=== PATIENT | female | born 1995 | race African-American/Black ===

== ENCOUNTER 2019-01-09 19:44 | Emergency (ER) | payer OTHER ==
--- NOTE | 2019-01-09 21:18 | ER Document Report ---
ED General - General Chief Complaint: Abdominal Pain Stated Complaint: ABDOMINAL PAIN Time Seen by Provider: 01/09/19 21:06 Primary Care Provider: [facility] [Provider Group] - Follow up in 3-5 days Notes: Patient is a 23-year-old female G 2P1 approximately 8-10 weeks gravid that presents to the emergency department for chief complaint of pelvic pain and cramping and low back pain. Patient reports she is been having pelvic cramping and lower back pain as well as nausea and a few episodes of vomiting for several days now. It has been going on for almost a week. She currently rates the pain as a 3 out of 10 she is not taking anything for the pain at home. She states the pain seemed to be worse today so she decided come to the emergency department to have this evaluated. She also reports having some vaginal bleeding over the past 2 days, described as red 2 days ago, and darker more like spotting yesterday. Denies having any further bleeding today. She is not sure of her blood type. Past Medical History: Migraine headaches Past Surgical History: Denies surgical history Social History: Denies tobacco, alcohol or drug use. Family History: Reviewed and noncontributory for presenting illness Allergies: Reviewed, see documented allergy list. REVIEW OF SYSTEMS: Other than noted above, the 12 point review of systems was reviewed with the patient and were negative, all pertinent findings are included in the HPI. PHYSICAL EXAMINATION: Vital signs reviewed, nursing noted reviewed. GENERAL: Well-appearing, well-nourished and in no acute distress. HEAD: Atraumatic, normocephalic. EYES: Eyes appear normal, extraocular movements intact, sclera anicteric, conjunctiva are normal. ENT: nares patent, oropharynx clear without exudates. Moist mucous membranes. NECK: Normal range of motion, supple without lymphadenopathy LUNGS: Breath sounds clear to auscultation bilaterally and equal. No wheezes rales or rhonchi. HEART: Regular rate and rhythm without murmurs ABDOMEN: Soft, mild lower abdominal tenderness to palpation bilaterally, normoactive bowel sounds. No rebound, guarding, or rigidity. No masses appreciated. EXTREMITIES: Nontender, good range of motion, no pitting or edema. NEUROLOGICAL: No focal neurological deficits. Moves all extremities spontaneously Motor and sensory grossly intact on exam. PSYCH: Normal mood, normal affect. SKIN: Warm, Dry, normal turgor, no rashes or lesions noted on exposed skin TRAVEL OUTSIDE OF THE [place] IN LAST 30 DAYS: No - Related Data Allergies/Adverse Reactions: No Known Allergies Allergy (Unverified 01/09/19 19:50) Past Medical History - Social History Smoking Status: Never Smoker Chew tobacco use (# tins/day): No Frequency of alcohol use: None Drug Abuse: None Family History: Reviewed & Not Pertinent Patient has suicidal ideation: No Patient has homicidal ideation: No Renal/ Medical History: Denies: Hx Peritoneal Dialysis Physical Exam - Vital signs Vitals: Temp Pulse Resp BP Pulse Ox 99 F 85 18 165/75 H 98 01/09/19 19:53 01/09/19 19:53 01/09/19 19:53 01/09/19 19:53 01/09/19 19:53 Course - Re-evaluation Re-evalutation: Patient seen and examined vital signs reviewed. Laboratory data and imaging were ordered as appropriate for the patient's presenting symptoms and complaint, with consideration of any critical or life threatening conditions that may be associated with their obtained history and exam as noted above. Patient was treated with Tylenol and Reglan as well as IV fluids Results were reviewed when available and demonstrated single IUP on ultrasound, blood work demonstrated very mild anemia, appropriate quantitative hCG, urinalysis was unremarkable not concerning for UTI. The patient was re-evaluated and was stable Evaluation was most consistent with vaginal bleeding in early , abdominal cramping, and nausea, will discharge to have her follow-up with women's health. Results were discussed with the patient at this point, after careful consideration I feel that that patient can be discharged from the emergency department, the patient was educated treatments and reasons to return to the emergency department based on their presumed diagnosis as noted above, they were advised to followup with a primary care physician in 2-3 days. Patient was agreeable to plan of care. *Note is created using voice recognition software and may contain spelling, syntax or grammatical errors. Laboratory 01/09/19 01/09/19 01/09/19 20:13 21:50 21:50 WBC 8.3 RBC 4.14 Hgb 11.0 L Hct 32.3 L MCV 78 L MCH 26.6 L MCHC 34.1 RDW 15.6 H Plt Count 252 Seg Neutrophils % 66.4 Lymphocytes % 26.1 Monocytes % 5.7 Eosinophils % 1.5 Basophils % 0.3 Absolute Neutrophils 5.5 Absolute Lymphocytes 2.2 Absolute Monocytes 0.5 Absolute Eosinophils 0.1 Absolute Basophils 0.0 Sodium 137.8 Potassium 3.8 Chloride 106 Carbon Dioxide 20 L Anion Gap 12 BUN 10 Creatinine 0.82 Est GFR ( Amer) > 60 Est GFR (Non-Af Amer) > 60 Glucose 82 Calcium 9.4 Total Bilirubin 0.6 Direct Bilirubin 0.3 Neonat Total Bilirubin Not Reportable Neonat Direct Bilirubin Not Reportable Neonat Indirect Bili Not Reportable AST 17 ALT 7 L Alkaline Phosphatase 82 Total Protein 7.1 Albumin 4.1 Lipase 32.4 Beta HCG, Quant 18458.00 H Total Beta HCG POSITIVE Urine Color YELLOW Urine Appearance CLEAR Urine pH 5.0 Ur Specific [place] 1.014 Urine Protein NEGATIVE Urine Glucose (UA) NEGATIVE Urine Ketones 20 H Urine Blood NEGATIVE Urine Nitrite NEGATIVE Urine Bilirubin NEGATIVE Urine Urobilinogen NEGATIVE Ur Leukocyte Esterase NEGATIVE Urine WBC (Auto) 1 Squamous Epi Cells Auto 2 Urine Mucus (Auto) RARE Urine Ascorbic Acid NEGATIVE Blood Type Rhogam Indicated 01/09/19 21:50 WBC RBC Hgb Hct MCV MCH MCHC RDW Plt Count Seg Neutrophils % Lymphocytes % Monocytes % Eosinophils % Basophils % Absolute Neutrophils Absolute Lymphocytes Absolute Monocytes Absolute Eosinophils Absolute Basophils Sodium Potassium Chloride Carbon Dioxide Anion Gap BUN Creatinine Est GFR ( Amer) Est GFR (Non-Af Amer) Glucose Calcium Total Bilirubin Direct Bilirubin Neonat Total Bilirubin Neonat Direct Bilirubin Neonat Indirect Bili AST ALT Alkaline Phosphatase Total Protein Albumin Lipase Beta HCG, Quant Total Beta HCG Urine Color Urine Appearance Urine pH Ur Specific [place] Urine Protein Urine Glucose (UA) Urine Ketones Urine Blood Urine Nitrite Urine Bilirubin Urine Urobilinogen Ur Leukocyte Esterase Urine WBC (Auto) Squamous Epi Cells Auto Urine Mucus (Auto) Urine Ascorbic Acid Blood Type O POSITIVE Rhogam Indicated RHOGAM NOT INDICATED Obstetrics Ultrasound 01/09/19 21:18 IMPRESSION: Single live intrauterine . Small subchorionic hemorrhage. - Vital Signs Vital signs: Temp Pulse Resp BP Pulse Ox 98.6 F 75 18 114/57 L 100 01/10/19 00:41 01/10/19 00:41 01/09/19 19:53 01/10/19 00:41 01/10/19 00:41 - Laboratory Result Diagrams: 01/09/19 21:50 01/09/19 21:50 Laboratory results interpreted by me: 01/09/19 01/09/19 01/09/19 20:13 21:50 21:50 Hgb 11.0 L Hct 32.3 L MCV 78 L MCH 26.6 L RDW 15.6 H Carbon Dioxide 20 L ALT 7 L Beta HCG, Quant 97718.00 H Urine Ketones 20 H Discharge - Discharge Clinical Impression: Pelvic pain, Vaginal bleeding during Subchorionic hemorrhage Qualifiers: Fetus number: single or unspecified fetus Trimester: first trimester Qualified Code(s): O41.8X10 - Other specified disorders of amniotic fluid and membranes, first trimester, not applicable or unspecified Condition: Stable Disposition: HOME, SELF-CARE Instructions: Bleeding During Early ([facility]) Additional Instructions: Please follow-up with women's health, you may take the prescribed antinausea m edicine every 8 hours if needed. If your symptoms worsen or you have further or concerning vaginal bleeding, do not hesitate to return to the emergency department. Prescriptions: Metoclopramide HCl [Reglan 10 mg Tablet] 1 tab PO Q8H PRN #10 tablet PRN Reason: nausea/vomiting Referrals: [facility] [Provider Group] - Follow up in 3-5 days
[2019-01-09] MEDS ORDERED: NORMAL SALINE 1000 ML 1,000 ML IV ONE (21:19)
[2019-01-09] MEDS ORDERED: ACETAMINOPHEN 325 MG TABLET PO ONE (21:19)
[2019-01-09] MEDS ORDERED: METOCLOPRAMIDE HCL INJ/PF 10 MG/2 ML SDV IV ONE (21:56)
[2019-01-09 22:09] LABS: ABSOLUTE EOSINOPHILS # (AUTO) 0.1 10^3/uL (0.0-0.6); ABSOLUTE LYMPHOCYTES (AUTO) 2.2 10^3/uL (0.5-4.7); ABSOLUTE MONOCYTES (AUTO) 0.5 10^3/uL (0.1-1.4); ABSOLUTE NEUT (AUTO) 5.5 10^3/uL (1.7-8.2); BASOPHILS % (AUTO) 0.3 % (0-2); EOSINOPHILS % (AUTO) 1.5 % (0-6); HEMATOCRIT 32.3 % (36.0-47.0); LYMPHOCYTES % (AUTO) 26.1 % (13-45); MEAN CORPUSCULAR HEMOGLOBIN 26.6 pg (27.0-33.4); MEAN CORPUSCULAR HGB CONC 34.1 g/dL (32.0-36.0); MEAN CORPUSCULAR VOLUME 78 fl (80-97); MONOCYTES % (AUTO) 5.7 % (3-13); PLATELET COUNT 252 10^3/uL (150-450); RED BLOOD COUNT 4.14 10^6/uL (3.72-5.28); RED CELL DISTRIBUTION WIDTH 15.6 % (11.5-14.0); SEGMENTED NEUTROPHILS % (AUTO) 66.4 % (42-78); TOTAL CELLS COUNTED % (AUTO) 100 %; WHITE BLOOD COUNT 8.3 10^3/uL (4.0-10.5)
[2019-01-09 22:12] LABS: APPEARANCE,URINE CLEAR; BILIRUBIN,URINE NEGATIVE (NEGATIVE); COLOR,URINE YELLOW; GLUCOSE, URINE NEGATIVE (NEGATIVE); KETONES,URINE 20 mg/dL (NEGATIVE); LEUKOCYTE ESTERASE,URINE NEGATIVE (NEGATIVE); NITRITE,URINE NEGATIVE (NEGATIVE); PROTEIN,URINE NEGATIVE (NEGATIVE); URINE SPECIFIC GRAVITY 1.014; UROBILINOGEN,URINE NEGATIVE mg/dL (<2.0)
[2019-01-09 23:00] LABS: ALANINE AMINOTRANSFERASE 7 U/L (9-52); ALBUMIN 4.1 g/dL (3.5-5.0); ALKALINE PHOSPHATASE 82 U/L (38-126); ANION GAP 12 (5-19); ASPARTATE AMINO TRANSFERASE 17 U/L (14-36); BILIRUBIN,DIRECT 0.3 mg/dL (0.0-0.4); BILIRUBIN,TOTAL 0.6 mg/dL (0.2-1.3); BLOOD UREA NITROGEN 10 mg/dL (7-20); CALCIUM 9.4 mg/dL (8.4-10.2); CARBON DIOXIDE 20 mmol/L (22-30); CHLORIDE 106 mmol/L (98-107); GLUCOSE 82 mg/dL (75-110); LIPASE 32.4 U/L (23-300); POTASSIUM 3.8 mmol/L (3.6-5.0); SODIUM 137.8 mmol/L (137-145); TOTAL PROTEIN 7.1 g/dL (6.3-8.2)
--- NOTE | 2019-01-09 23:18 | RADIOLOGY REPORT (SQ) ---
EXAM DESCRIPTION: US TRANSVAGINAL COMPLETED DATE/TME: 01/09/2019 21:18 CLINICAL HISTORY: 23 years, Female, vaginal bleeding, ?8-10wks COMPARISON:None. TECHNIQUE: Grayscale and Doppler sonogram of the pelvis. Transvaginal technique was used for better evaluation of the pelvic viscera FINDINGS: The uterus measures 9.7 x 5.7 x 6.7 cm and contains a single gestational sac. pole and yolk sac are identified. Estimated gestational age is five weeks five days by current ultrasound. cardiac activity is measured at 111 bpm. The cervical length is 3.1 cm. Estimated date of delivery September 06, 2019. There is a hypoechoic area adjacent to the gestational sac measuring approximately 1.4 x 0.9 x 1.6 cm. Right ovary measures 3.7 x 2.7 x 3.8 cm and contains a small cyst. The left ovary measures 2.8 x 1.6 x 3.2 cm. Normal vascular flow to both ovaries by color Doppler interrogation. IMPRESSION: Single live intrauterine . Small subchorionic hemorrhage.
[2019-01-10 00:42] VITALS: BP 114/57
== END 2019-01-10 00:48 | disposition home or self-care (01) ==
LOC: ER 19:44
DX: O26.891 Other specified pregnancy related conditions, first trimester (principal); R10.2 Pelvic and perineal pain; O20.8 Other hemorrhage in early pregnancy; O21.9 Vomiting of pregnancy, unspecified; O99.89 Other specified diseases and conditions complicating pregnancy, childbirth and the puerperium; M54.5 Low back pain; O99.011 Anemia complicating pregnancy, first trimester; D64.9 Anemia, unspecified; Z3A.00 Weeks of gestation of pregnancy not specified
CPT/HCPCS: 99284; 96374; 86900; 86901; 36415; 87086; 84702; 83690; 85025; 87088; 80053; 81001; 76817; J2765; J7030